=== PATIENT | male | born 1970 | race Caucasian/White ===

== ENCOUNTER → 2018-07-07 09:39 | Outpatient (CLI) | payer OTHER, SELFPAY ==
[2018-07-07 14:27] LABS: Erythrocyte Sedimentation Rate 11 mm/hr (0-15)
[2018-07-07 14:37] LABS: Absolute Lymphocyte Count 1.63 X10^3/ul (0.83-4.51); Absolute Neutrophil Count 4.8 X10^3/uL (2.0-7.7); Basophil# 0.02 X10^3/uL; Basophil% 0.3 % (0-1); Eosinophil# 0.06 X10^3/uL; Eosinophils% 0.9 % (0-5); Hematocrit 45.9 % (40-54); Hemoglobin 15.2 g/dl (13.0-16.5); Lymphocyte # 1.63 X10^3/ul (4.0); Lymphocyte % 23.2 % (19-41); Mean Corp Hgb Conc 33.1 g/gl (32-36); Mean Corpuscular Hgb 29.9 pg (27.0-32.0); Mean Corpuscular Volume 90.4 fL (80-94); Mean Platelet Vol. 10.2 fl (6.2-12.0); Monocyte# 0.52 X10^3/uL; Monocyte% 7.4 % (0-10); Neutrophil # 4.78 X10^3/uL (2.7-7.7); Neutrophil % 67.9 % (47-70); Platelet Count 257 K/mm3 (150-450); RBC Distribution Width CV 13.1 % (11.6-14.6); Red Blood Count 5.08 M/mm3 (4.6-6.2)
[2018-07-07 14:38] LABS: POSITIVE COUNT NO; POSITIVE DIFFERENTIAL NO; POSITIVE MORPHOLOGY NO
[2018-07-07 15:08] LABS: Anion Gap 10 (5-15); BUN 26 mg/dL (7-18); BUN/Creat Ratio 24.8 RATIO (10-20); CRP < 2.90 mg/L (0.0-3.0); Calcium,Total 9.3 mg/dL (8.5-10.1); Chloride 105 mmol/L (98-107); Creatinine, Serum 1.05 mg/dL (0.70-1.30); EST Glomerular Filtration Rate 81 mL/min (>60); Est Glom Filt Rate - Afr Amer 98 mL/min (>60); Glucose 112 mg/dL (74-106); Potassium 3.8 mmol/L (3.5-5.1); Sodium Level 141 mmol/L (136-145); Thyroid Stim Hormone (TSH) 1.41 uIU/mL (0.358-3.74)
[2018-07-12 08:37] LABS: AST(SGOT) 22 U/L (15-37); Alanine Aminotransfer ALT/SGPT 37 U/L (16-61); Albumin, Serum 4.3 g/dL (3.2-5.0); Alkaline Phosphatase 67 U/L (45-117); Bilirubin, Direct 0.12 mg/dL (0.00-0.30); Globulin 3.5 g/dL (2.2-4.2); Protein, Total 7.8 g/dL (6.4-8.2)
--- OUTSIDE RECORDS SUMMARY | 2018-09-01 04:31 | XMS RPT_ITS ---
:1970 Author Organization OHIP Care Team Providers Name Role Phone Bhavana Tabor Attending Unavailable Bhavana Tabor Primary Care Unavailable Bhavana Tabor Attending Unavailable Bhavana Tabor Referring Unavailable Bhavana Tabor Primary Care Unavailable Bhavana Tabor Attending Unavailable Bhavana Tabor Referring Unavailable Bhavana Tabor Primary Care Unavailable Bhavana Tabor Attending Unavailable Bhavana Tabor Referring Unavailable Bhavana Tbaor Primary Care Unavailable MYNOR MCKEON Attending Unavailable Zaid Gao Referring Unavailable BHAVANA TABOR Primary Care Unavailable PROBLEMS PROBLEMS No Problem Records FoundPROCEDURES PROCEDURES No Procedure Records FoundRESULTS RESULTS LIVER Observed: 07/14/2018 Status: F Source: YULI 8:43 AM [facility] REPOSITORY [facility] Imaging Services [address] [place] [address] Liver MR#: [id number] Acct: [id number] Name: JOSE LEDESMA Rep #: [id number] : 1970 M 48 From: Pierre Quiñones MD PCP: Bhavana Tabor MD Status: REG CLI Study: Liver Date of Exam: 07/14/18 Exam# [id number] Ordering Dr: Abdoul Tabor MD STUDY: ABDOMINAL ULTRASOUND - RIGHT UPPER QUADRANT REASON FOR VISIT: Male, [address] scan of the abdomen showed 2 small abnormalities in the liver. TECHNIQUE: Ultrasound evaluation of the right upper quadrant was performed with real-time and static jeter-scale imaging. TECHNICAL QUALITY: Adequate. COMPARISON: Comparison is made with prior CT scan and abdomen dated July 12, 2018. FINDINGS: Liver: The liver measures 13.5 cm. There is normal echogenicity of the liver. The bile ducts are within normal limits. There is hepatic color flow. The direction of portal flow is hepatopetal. There is a 7 mm x 6 mm x 10 mm slightly echogenic nodule in the inferior lateral aspect right lobe of the liver. This corresponds to the CT findings. This may represent a small hemangioma. There is also evidence of a 7 mm x 6 mm x 6 mm slightly echogenic nodule in the superior aspect of the right lobe. This has the appearance of an hemangioma as well. Gallbladder: Normal distended gallbladder. The gallbladder wall measures 2.4 mm. There is a negative sonographic Thomas's sign. There is no pericholecystic fluid. There are no gallstones. Common Bile Duct (C.B.D.): The common bile duct measures 3.7 mm. Pancreas: Normal size of the head, body and tail of the pancreas. There is normal echogenicity of the pancreas. There is no demonstrated pancreatic mass or cyst. Right Kidney: Normal size of the right kidney. The right kidney measures 9.9 cm x 4.8 cm x 5.4 cm. Normal renal cortex. The right cortex measures 1.6 cm. There is no demonstrated renal mass or cyst. There is no right hydronephrosis. US/Liver IMPRESSION: Sonographic findings suggestive of 2 small hemangiomas in the right lobe of liver corresponding to the CT findings. Electronically Signed: Pierre Quiñones MD at 14:29 EST Tel [phone], Service support , CC: Bhavana Tabor MD Rope Cleaner: Signed CHEST WITH CONTRAST Observed: 07/12/2018 Status: F Source: YULI 3:23 PM [facility] REPOSITORY [facility] Imaging Services [address] [place] [address] Chest WITH Contrast MR#: [id number] Acct: [id number] Name: JOSE LEDESMA Rep #: [id number] : 1970 M 48 From: Simone Souza MD PCP: Bhavana Tabor MD Status: REG CLI Study: Chest WITH Contrast Date of Exam: 07/12/18 Exam# [id number] Ordering Dr: Abdoul Tabor MD STUDY: CT CHEST WITH CONTRAST REASON FOR EXAM: Male, 48 years old. Brain metastases. RADIATION DOSAGE (If Supplied By Facility): CTDIvol = ( 12.59 ) mGy, DLP = ( 970.62 ) mGycm TECHNIQUE: Transaxial imaging was performed following intravenous administration of 100CC ml of Isovue 300 contrast material. Individualized dose optimization techniques were used for this CT. COMPARISON: None. FINDINGS: TRACHEA, THYROID, ESOPHAGUS: No tracheomalacia,stricture or wall thickening. Thyroid and esophagus are normal CARDIOVASCULAR SYSTEM: The thoracic aorta is normal with no focal aneurysm or dissection. There are no abnormal calcifications/metallic densities at the aortic root. The pulmonary trunk and the left and right pulmonary arteries and their lobar and segmental branches all fail to show any abnormal and persistent filling defects to indicate the presence of pulmonary embolism. The heart is normal in size with no demonstration of any right ventricular strain. No developmental vascular anomalies are seen. KELLI AND LYMPH NODES: No hilar masses and no mediastinal, hilar, axillary or supraclavicular adenopathy LUNGS, LOW-ATTENUATION: No traction bronchiectasis, honeycombing,emphysema, lung cysts or cavitations LUNGS, HIGH ATTENUATION: No nodules/masses, ground glass opacities/consolidations or increased interstitial markings LUNGS, MOSAIC/CRAZY PAVING: Not evident PLEURA AND CHEST WALL: No plural effusions, pneumothoraces,rib fractures or any osteolytic/osteoblastic changes . The soft tissue chest wall including the breasts are normal . CT/Chest WITH Contrast IMPRESSION: No primary or secondary metastatic lesions in the lungs. No acute findings. Electronically Signed: Simone Souza MD at 4:19 EST Tel , Service support , CC: Bhavana Tabor MD Rope Cleaner: Signed ABDOMEN/PELVIS WITH Observed: 07/12/2018 Status: F Source: [place] CONTRAST 3:23 PM [facility] RE[facility]ITORY [facility] Imaging Services [address] [place] [address] Abdomen/Pelvis WITH Contrast MR#: [id number] Acct: [id number] Name: JOSE LEDESMA Rep #: [id number] : 1970 M 48 From: Simone Souza MD PCP: Bhavana Tabor MD Status: REG CLI Study: Abdomen/Pelvis WITH Contrast Date of Exam: 07/12/18 Exam# [id number] Ordering Dr: Abdoul Tabor MD STUDY: CT ABDOMEN AND PELVIS WITH CONTRAST REASON FOR EXAM: Male, 48 years old. Brain metastasis RADIATION DOSAGE (If Supplied By Facility): CTDIvol = ( 12.59 ) mGy, DLP = ( 970.62 ) mGycm TECHNIQUE: Transaxial images were obtained from the dome of the diaphragm to the symphysis pubis without oral contrast. 100CC ml of Isovue 300 contrast was administered. Sagittal and coronal images were reconstructed. Individualized dose optimization techniques were used for this CT. COMPARISON: None. FINDINGS: The lung bases are clear. A 3.5 and 5.8 mm areas of low attenuation in the left and right lobes respectively. It is not clear whether these are metastatic foci are not. No dilated intrahepatic biliary radicles. The gallbladder is normal with no calcifications within it. There is no pericholecystic fluid collection or streakiness The spleen is normal. The pancreas is normal. Both adrenals are normal. The kidneys are normal with no masses, calculi or hydronephrosis The stomach is normal. There is no bowel distention, acute appendicitis or diverticulitis. No constricting lesions are seen in large bowel. The abdominal wall is intact with no hernias. There is no ascites or any free intraperitoneal air. No indication of epiploic appendagitis The vascular structures in the retroperitoneum are normal. There is no retrocrural, retroperitoneal or mesenteric adenopathy. The bones and joints are normal. The urinary bladder is normal.--The prostate is enlarged and indents on the bladder base. There is no inguinal or pelvic adenopathy. There is no inguinal hernia. . CT/Abdomen/Pelvis WITH Contrast IMPRESSION: A 3.5 and 5.8 mm areas of low attenuation within the left and right lobes of the liver respectively. It is not clear whether these are metastatic foci are not. No masses are seen in the entire abdomen or pelvis. No acute findings Electronically Signed: Simone Souza MD at 4:25 EST Tel , Service support , CC: Bhavana Tabor MD Rope Cleaner: Signed BRAIN W/WO CONTRAST Observed: 07/10/2018 Status: F Source: YULI 12:28 PM [facility] RE[facility]ORY [facility] Imaging Services [address] [place] [address] Brain W/WO Contrast MR#: [id number] Acct: [id number] Name: JOSE LEDESMA Rep #: [id number] : 1970 M 48 From: Jordy Alvarenga MD PCP: Bhavana Tabor MD Status: REG CLI Study: Brain W/WO Contrast Date of Exam: 07/10/18 Exam# [id number] Ordering Dr: Abdoul Tabor MD STUDY: MRI BRAIN WITH AND WITHOUT CONTRAST REASON FOR EXAM: Male, 48 years old. Right facial numbness and hypersensitive from jaw to scalp x2 weeks. TECHNIQUE: Standardized multiplanar fat and water weighted pulse sequences were obtained. 8 ml of Gadavist contrast material was administered intravenously for the contrast portion of the examination. COMPARISON: None. FINDINGS: 0.8 x 0.6 cm rim-enhancing mass in the right middle cerebellar peduncle. This is also visible on the T2 FLAIR sequence and is mildly hypointense on T1. A second 2 mm solid enhancing mass in the left middle frontal lobe gyrus (series 14, image 18). This second mass is not visible on the T2 FLAIR sequence. They are brain metastatic mass lesions until proven otherwise. Normal ventricles and cisterns. No other focal signal abnormalities throughout the brain parenchyma. Normal white matter tracts of the supratentorial brain. Normal bilateral basal ganglia. Normal thalami. There is no extra-axial fluid accumulation. Normal flow voids within the major intracranial circulation suggesting patency by spin echo criteria. Normal venous enhancement. There is no enhancing intra-axial or extra-axial abnormality. Normal sella turcica, pituitary gland, infundibular stalk, optic chiasm and hypothalamus. Normal tectal plate and pineal gland. Normal midbrain, simone and medulla. Normal cerebellum. Normal basal cisterns. Normal bilateral temporal bones. Normal bilateral internal auditory canals. No demonstrated orbital abnormality, within the constraints of a routine brain study. Normal visualized paranasal sinuses. Normal calvarium and skull base. Normal visualized soft tissue structures. Normal visualized upper cervical spine. MRI/Brain W/WO Contrast IMPRESSION: 0.8 x 0.6 cm rim-enhancing mass in the right middle cerebellar peduncle and a 2 mm solid enhancing mass in the left middle frontal lobe gyrus. They are worrisome for brain metastatic mass lesions until proven otherwise. Electronically Signed: Jordy Alvarenga MD at 14:20 EST , Service support , CC: Bhavana Tabor MD Rope Cleaner: Signed ERYTHROCYTE SED RATE Collected: 07/07/2018 Status: F Source: [place] 9:43 AM [facility] REPOS[facility]ORY TYPE CODE TESTS RESULT OUT OF RANGE REFERENCE UNITS LAB L102.0000 0-15 mm/hr Normal SED RATE 11 Performed By: #### L101.9900, L100.0100, L500.2500, L501.9520 #### [facility] [address] [place], [address] CBC W/DIFF, AUTOMATED Collected: 07/07/2018 Status: F Source: [place] 9:43 AM [facility] REPOS[facility]ORY TYPE CODE TESTS RESULT OUT OF RANGE REFERENCE UNITS LAB L100.1000 4.4-11.0 K/mm3 Normal WBC 7.0 LAB L100.1200 4.6-6.2 M/mm3 Normal RBC 5.08 LAB L100.1300 13.0-16.5 g/dl Normal HGB 15.2 LAB L100.1400 40-54 % Normal HCT 45.9 LAB L100.1500 80-94 fL Normal MCV 90.4 LAB L100.1600 27.0-32.0 pg Normal MCH 29.9 LAB L100.1700 32-36 g/gl Normal MCHC 33.1 LAB L100.1810 11.6-14.6 % Normal RDW CV 13.1 LAB L100.1820 35.1-43.9 fl Normal RDW SD 43.0 LAB L100.1900 150-450 K/mm3 Normal PLT 257 LAB L100.2000 6.2-12.0 fl Normal MPV 10.2 LAB L100.2100 47-70 % Normal NEUT% 67.9 LAB L100.2200 19-41 % Normal LY% 23.2 LAB L100.2300 0-10 % Normal MONO% 7.4 LAB L100.2400 0-5 % Normal EO% 0.9 LAB L100.2500 0-1 % Normal BASO% 0.3 LAB L100.2550 0.0-0.9 % Normal IM GRAN % 0.300 Result Comment: IG% - Immature Granulocytes (promyelocytes, myelocytes and metamyelocytes) > 1% indicates that a LEFT SHIFT is Present. LAB L100.2620 2.0-7.7 X10 3/uL Normal Absolute Neut 4.8 LAB L100.2720 0.83-4.51 X10 3/ul Normal Absolute Lymph 1.63 Performed By: #### L101.9900, L100.0100, L500.2500, L501.9520 #### [facility] [address] [place], [place], [address] BASIC METABOLIC Collected: 07/07/2018 Status: F Source: YULI PROFILE (BMP) 9:43 AM [facility] REPOSITORY Order Comment: PLEASE ADD LIVER TO BLOOD DRAWN 07/07/18 PER TYPE CODE TESTS RESULT OUT OF RANGE REFERENCE UNITS LAB L501.0100 74-106 mg/dL High GLU 112 Result Comment: Fasting Glucose result from 100 to 125 mg/dL suggests IMPAIRED HOMEOSTASIS per A.D.A. criteria. Please note revised GLUCOSE reference range effective 2017. LAB L501.1000 7-18 mg/dL High BUN 26 LAB L501.1100 0.70-1.30 mg/dL Normal CREAT,SERUM 1.05 Result Comment: The validity of the calculated GFR AND GFRAA in patients over 70 years has not been determined. Clinical correlation is essential. LAB L501.1110 >60 mL/min Normal EST GFR 81 Result Comment: Non- GFR Calc LAB L501.1115 >60 mL/min Normal EST GFR - AA 98 Result Comment: GFR Calc LAB L501.1300 10-20 RATIO High BUN/CRE 24.8 LAB L501.2200 8.5-10.1 mg/dL CA Normal 9.3 LAB L501.5300 136-145 mmol/L NA Normal 141 LAB L501.5600 3.5-5.1 mmol/L K Normal 3.8 LAB L501.5900 98-107 mmol/L CL Normal 105 LAB L501.6100 21.0-32.0 mmol/L Normal CO2 26.0 LAB L501.6200 5-15 Normal GAP 10 Performed By: #### L101.9900, L100.0100, L500.2500, L501.9520 #### [facility] [address] [place], [place], [id number] THYROID STIM HORMONE Collected: 07/07/2018 Status: F Source: [place] (TSH) 9:43 AM [facility] REPOS[facility]ORY Order Comment: PLEASE ADD LIVER TO BLOOD DRAWN 07/07/18 PER TYPE CODE TESTS RESULT OUT OF RANGE REFERENCE UNITS LAB L501.9520 0.358-3.74 uIU/mL Normal TSH 1.41 Performed By: #### L101.9900, L100.0100, L500.2500, L501.9520 #### [facility] [address] [place], [place], [id number] CRP Collected: 07/07/2018 Status: F Source: [place] 9:43 AM [facility] REPOS[facility]ORY Order Comment: PLEASE ADD LIVER TO BLOOD DRAWN 07/07/18 PER TYPE CODE TESTS RESULT OUT OF RANGE REFERENCE UNITS LAB L501.6710 0.0-3.0 mg/L Normal < 2.90 C-REACTIVE PROT Result Comment: C-Reactive Protein (CRP) provides useful information for the diagnosis, therapy and monitoring of inflammatory processes and associated diseases. For the evaluation of Relative Risk for Cardiovascular Disease, a High Sensitivity CRP (HSCRP) should be ordered. Performed By: #### L501.6710, L500.3400 #### [facility] [address] [facility] [place], [place], [id number] LIVER PROFILE Collected: 07/07/2018 Status: F Source: [place] 9:43 AM [facility] REPOS[facility] Order Comment: PLEASE ADD LIVER TO BLOOD DRAWN 07/07/18 PER TYPE CODE TESTS RESULT OUT OF RANGE REFERENCE UNITS LAB L501.1500 6.4-8.2 g/dL Normal T PROT 7.8 LAB L501.1800 3.2-5.0 g/dL Normal ALB 4.3 LAB L501.1950 2.2-4.2 g/dL Normal GLOB 3.5 LAB L501.4100 15-37 U/L Normal AST 22 LAB L501.4305 45-117 U/L Normal ALK P 67 LAB L501.4405 16-61 U/L Normal ALT 37 LAB L501.4600 0.20-1.00 mg/dL Normal T BILI 0.50 LAB L501.4700 0.00-0.30 mg/dL Normal D BILI 0.12 Performed By: #### L501.6710, L500.3400 #### [facility] [address] [place], [address] ALLERGIES ALLERGIES DATE TYPE / CODE NAME / CODE REACTION SEVERITY SOURCE [id number] NO KNOWN [place] [address]([facility]) Repository ENCOUNTERS ENCOUNTERS ADMIT/DISCHARGE ACCOUNT NUMBER ADMITTING ENCOUNTER LOCATION SOURCE CLASS 07/26/2018 [id number] Ambulatory [facility] MEDICAL Repository CENTERBuildi ng:NEUSAGHB 07/14/2018 [id number] [facility] ding:US Repository 07/12/2018 [id number] [facility] ding:CT Repository 07/10/2018 [id number] [facility] ding:MRI Repository 07/07/2018 [id number] [facility] ding:MFPLAB Repository PAYERS PAYERS ENCOUNTER GUARANTOR PAYER SUBSCRIBER SOURCE 07/26/2018 JOSE SARAVIA [facility] SCHWARTZDOB: Insurance:[facility] SCHWARTZDOB: [facility] [id number] Repository [facility], Number: [id number]: [id number] Date: () 07/14/2018 JOSE De La Cruz Primary JOSE Roldan [id number] Insurance:[facility] [place] SCHWARTZDOB: [facility] Number: [id number] [id number] Repository [address]Lza: [phone]) Date: [phone] () JOSHUA MARY PAK [address]RN: 07/14/2018 Secondary JOSE Roldan Insurance:[facility] PACKAGE SCHWARTZDOB: [facility] Number: [id number] [facility] [id number] Repository Date:2018-07-13 07/14/2018 Tertiary NOT GIVENUNK [place] Insurance:SELF PAY [facility] Number: Effective Repository Date:2018-07-13 07/12/2018 JOSE R Primary JOSE [id number] Insurance:DO SCHWARTZDOB: Community DEKALB RULEPolicy Number: [id number], [place] [id number] Repository [address]Pmk: ([phone]) Date: [phone] () [facility], [place] [address]WG: 07/12/2018 Secondary NOT GIVENUNK [place] Insurance:SELF PAY [facility] Number: Effective Repository Date:2018-07-11 07/10/2018 JOSE R Primary JOSE LEDESMA538 Insurance:DO SCHWARTZDOB: [facility] DAREN [facility] Number: [id number], [place] [id number] Repository [address]Wve: ([phone]) Date:[phone] () [facility], [place] [address]TO: 07/10/2018 Secondary JOSE R [place] Insurance:[facility] PACKAGE SCHWARTZDOB: [facility] Number: [id number] Hospital [id number] Repository Date:2018-07-07 07/10/2018 Tertiary NOT GIVENUNK [place] Insurance:SELF PAY [facility] Number: Effective Repository Date:2018-07-07 07/07/2018 Jose Ledesma538 Primary Jose Roldan DEPEÑALB Insurance:DO SchwartzDOB: [place], [place] [facility] Number: [id number] Hospital [address]Opt: [phone] [id number] Repository [id number] (HP) Date: [facility], [place] [address]TB: 07/07/2018 Secondary NOT GIVENUNK [place] Insurance:SELF PAY [facility] Number: Effective Repository Date:2018-07-07
== END ==
LOC: MFPLAB 09:42
PROVIDERS: Family Provider Family Medicine; PCP Family Medicine; Visit Provider Family Medicine
DX: R20.0 Anesthesia of skin (principal)
CPT/HCPCS: 36415; 80048; 80076; 84443; 85025; 85652; 86140

== ENCOUNTER → 2018-07-10 12:18 | Outpatient (CLI) | payer OTHER, SELFPAY ==
--- NOTE | 2018-07-10 12:27 | MRI_ITS ---
STUDY: MRI BRAIN WITH AND WITHOUT CONTRAST REASON FOR EXAM: Male, 48 years old. Right facial numbness and hypersensitive from jaw to scalp x2 weeks. TECHNIQUE: Standardized multiplanar fat and water weighted pulse sequences were obtained. 8 ml of Gadavist contrast material was administered intravenously for the contrast portion of the examination. COMPARISON: None. FINDINGS: 0.8 x 0.6 cm rim-enhancing mass in the right middle cerebellar peduncle. This is also visible on the T2 FLAIR sequence and is mildly hypointense on T1. A second 2 mm solid enhancing mass in the left middle frontal lobe gyrus (series 14, image 18). This second mass is not visible on the T2 FLAIR sequence. They are brain metastatic mass lesions until proven otherwise. Normal ventricles and cisterns. No other focal signal abnormalities throughout the brain parenchyma. Normal white matter tracts of the supratentorial brain. Normal bilateral basal ganglia. Normal thalami. There is no extra-axial fluid accumulation. Normal flow voids within the major intracranial circulation suggesting patency by spin echo criteria. Normal venous enhancement. There is no enhancing intra-axial or extra-axial abnormality. Normal sella turcica, pituitary gland, infundibular stalk, optic chiasm and hypothalamus. Normal tectal plate and pineal gland. Normal midbrain, simone and medulla. Normal cerebellum. Normal basal cisterns. Normal bilateral temporal bones. Normal bilateral internal auditory canals. No demonstrated orbital abnormality, within the constraints of a routine brain study. Normal visualized paranasal sinuses. Normal calvarium and skull base. Normal visualized soft tissue structures. Normal visualized upper cervical spine. MRI/Brain W/WO Contrast IMPRESSION: 0.8 x 0.6 cm rim-enhancing mass in the right middle cerebellar peduncle and a 2 mm solid enhancing mass in the left middle frontal lobe gyrus. They are worrisome for brain metastatic mass lesions until proven otherwise. Electronically Signed: Jordy Alvarenga MD at 14:20 EST , Service support ,
--- OUTSIDE RECORDS SUMMARY | 2018-09-02 18:41 | XMS RPT_ITS ---
:1970 Author Organization OHIP Care Team Providers Name Role Phone Bhavana Kim Attending Unavailable Bhavana Kim Primary Care Unavailable Bhavana Kim Attending Unavailable Bhavana Kim Referring Unavailable Bhavana Kim Primary Care Unavailable Bhavana Kim Attending Unavailable Bhavana Kim Referring Unavailable Bhavana Kim Primary Care Unavailable Bhavana Kim Attending Unavailable Bhavana Kim Referring Unavailable Bhavana Kim Primary Care Unavailable MYNOR MCKEON Attending Unavailable ZAID GAO Referring Unavailable MYNOR MCKEON Attending Unavailable Zaid Gao. Referring Unavailable BHAVANA KIM Primary Care Unavailable PROBLEMS PROBLEMS No Problem Records FoundPROCEDURES PROCEDURES No Procedure Records FoundRESULTS RESULTS LIVER Observed: 07/14/2018 Status: F Source: YULI 8:43 AM [facility] Imaging Services [address] [place] [address] Liver MR#: [id number] Acct: [id number] Name: JOSE TUCKER Rep #: [id number] : 1970 M 48 From: Pierre Quiñones MD PCP: Bhavana Kim MD Status: REG CLI Study: Liver Date of Exam: 07/14/18 Exam# [id number] Ordering Dr: Abdoul Kim MD STUDY: ABDOMINAL ULTRASOUND - RIGHT UPPER [...] Pierre Quiñones MD at 14:29 EST Tel [phone], Service support , CC: Bhavana Kim MD Edge Drummer: Signed CHEST WITH CONTRAST Observed: 07/12/2018 Status: F Source: YULI 3:23 PM [facility] Imaging Services [address] [place] [address] Chest WITH Contrast MR#: [id number] Acct: [id number] Name: JOSE TUCKER Rep #: [id number] : 1970 M 48 From: Simone Souza MD PCP: Bhavana Kim MD Status: REG CLI Study: Chest WITH Contrast Date of Exam: 07/12/18 Exam# [id number] Ordering Dr: Abdoul Kim MD STUDY: CT CHEST WITH CONTRAST REASON [...] Tel , Service support , CC: Bhavana Kim MD Edge Drummer: Signed ABDOMEN/PELVIS WITH Observed: 07/12/2018 Status: F Source: [place] CONTRAST 3:23 PM [facility] Imaging Services [address] [place] [address] Abdomen/Pelvis WITH Contrast MR#: [id number] Acct: [id number] Name: JOSE TUCKER Rep #: [id number] : 1970 M 48 From: Simone Souza MD PCP: Bhavana Kim MD Status: REG CLI Study: Abdomen/Pelvis WITH Contrast Date of Exam: 07/12/18 Exam# [id number] Ordering Dr: Abdoul Kim MD STUDY: CT ABDOMEN AND PELVIS WITH [...] Tel , Service support , CC: Bhavana Kim MD Edge Drummer: Signed BRAIN W/WO CONTRAST Observed: 07/10/2018 Status: F Source: YULI 12:28 PM [facility] Imaging Services [facility] [place] [address] Brain W/WO Contrast MR#: [id number] Acct: [id number] Name: JOSE TUCKER Rep #: [id number] : 1970 M 48 From: Jordy Alvarenga MD PCP: Bhavana Kim MD Status: REG CLI Study: Brain W/WO Contrast Date of Exam: 07/10/18 Exam# [id number] Ordering Dr: Abdoul Kim MD STUDY: MRI BRAIN WITH AND WITHOUT [...] EST , Service support , CC: Bhavana Kim MD Edge Drummer: Signed ERYTHROCYTE SED RATE Collected: 07/07/2018 Status: F Source: DIAMOND 9:43 AM [facility] TYPE CODE TESTS RESULT OUT OF RANGE REFERENCE UNITS LAB L102.0000 0-15 mm/hr Normal SED RATE 11 Performed By: #### L101.9900, L100.0100, L500.2500, L501.9520 #### [facility] [address] [place], [place], [id number] CBC W/DIFF, AUTOMATED Collected: 07/07/2018 Status: F Source: DI[place]OND 9:43 AM [facility] TYPE CODE TESTS RESULT OUT OF [...] By: #### L101.9900, L100.0100, L500.2500, L501.9520 #### [facility] [address] [place], [address] BASIC METABOLIC Collected: 07/07/2018 Status: F Source: YULI PROFILE (BMP) 9:43 AM [facility] Order Comment: PLEASE ADD LIVER TO [...] By: #### L101.9900, L100.0100, L500.2500, L501.9520 #### [facility] [address] [place], [address] THYROID STIM HORMONE Collected: 07/07/2018 Status: F Source: YULI (TSH) 9:43 AM [facility] Order Comment: PLEASE ADD LIVER TO BLOOD DRAWN 07/07/18 PER TYPE CODE TESTS RESULT OUT OF RANGE REFERENCE UNITS LAB L501.9520 0.358-3.74 uIU/mL Normal TSH 1.41 Performed By: #### L101.9900, L100.0100, L500.2500, L501.9520 #### [facility] [address] [place], [address] CRP Collected: 07/07/2018 Status: F Source: DIAMOND 9:43 AM [facility] Order Comment: PLEASE ADD LIVER TO [...] ordered. Performed By: #### L501.6710, L500.3400 #### [facility] [address] [place], [address] LIVER PROFILE Collected: 07/07/2018 Status: F Source: DIAMOND 9:43 AM [facility] Order Comment: PLEASE ADD LIVER TO [...] 0.12 Performed By: #### L501.6710, L500.3400 #### [facility] [address] [place], [address] ALLERGIES ALLERGIES DATE TYPE / CODE NAME / CODE REACTION SEVERITY SOURCE Drug NO KNOWN [facility] Class/73798 ALLERGIES Other [place] 1003(SNOMED Repository CT) [id number] NO KNOWN [place] [address]([facility]) Repository ENCOUNTERS ENCOUNTERS ADMIT/DISCHARGE ACCOUNT NUMBER ADMITTING ENCOUNTER LOCATION SOURCE CLASS 07/26/2018 [id number] Ambulatory [facility] Other [place] Repository 07/26/2018 [id number] Ambulatory [facility] MEDICAL Repository CENTERBuildi ng:NEUSAGHB 07/14/2018 [id number] [facility] ding:US Repository 07/12/2018 [id number] [facility] ding:CT Repository 07/10/2018 [id number] [facility] ding:MRI Repository 07/07/2018 [id number] [facility] ding:MFPLAB Repository PAYERS PAYERS ENCOUNTER GUARANTOR PAYER SUBSCRIBER SOURCE 07/26/2018 JOSE Easley SCHWARTZDOB: Insurance:[facility]: [id number], Number: [id number]: [id number] Date: () 07/14/2018 JOSE [place] [id number] Insurance:[facility]: [facility] Number: [id number] [id number] Repository [address]Wjk: 330) Date: [phone] () [place] PAK [address]BR: 07/14/2018 Secondary JOSE R Y[place] Insurance:[facility] PACKAGE SCHWARTZDOB: Community PLANPolicy Number: [id number] [facility] [id number] Repository Date:2018-07-13 07/14/2018 Tertiary NOT GIVENUNK [place] Insurance:SELF PAY [facility] Number: Effective Repository Date:2018-07-13 07/12/2018 JOSE R Primary JOSE R Yuli [id number] Insurance:DO SCHWARTZDOB: [facility] DEKALB RULEPolicy Number: [id number], [place] [id number] Repository [address]Nsz: (330) Date: [phone] () [facility], [place] [address]YN: 07/12/2018 Secondary NOT GIVENUNK [place] Insurance:SELF PAY [facility] Number: Effective Repository Date:2018-07-11 07/10/2018 JOSE R Primary JOSE R Y[place] [id number] Insurance:DO SCHWARTZDOB: [facility] RULEPoly Number: [id number], [place] [id number] Repository [address]Lym: ([phone]) Date: [phone] () [facility], [place] [address]LC: 07/10/2018 Secondary JOSE R Y[place] Insurance:[facility] PACKAGE SCHWARTZDOB: [facility] [id number] [facility] [id number] Repository Date:2018-07-07 07/10/2018 Tertiary NOT GIVENUNK [place] Insurance:SELF PAY [facility] Number: Effective Repository Date:2018-07-07 07/07/2018 Jose [id number] Primary Jose [place] DEPEÑALB Insurance:DO SchwartzDOB: [place] [facility] Number: [id number] Hospital [address]Abx: (462) [id number] Repository [phone] (HP) Date: [facility], [place] [address]QS: 07/07/2018 Secondary NOT GIVENUNK [place] Insurance:SELF PAY [facility]: Effective Repository Date:2018-07-07
== END ==
PROVIDERS: Family Provider Family Medicine; PCP Family Medicine; Referring Provider Family Medicine; Visit Provider Family Medicine
DX: R20.0 Anesthesia of skin (principal)
CPT/HCPCS: 70553; A9585

== ENCOUNTER → 2018-07-12 15:19 | Outpatient (CLI) | payer SELFPAY, OTHER ==
--- NOTE | 2018-07-12 15:22 | CT_ITS ---
STUDY: CT ABDOMEN AND PELVIS WITH CONTRAST REASON FOR EXAM: Male, 48 years old. Brain metastasis RADIATION DOSAGE (If Supplied By Facility): CTDIvol = ( 12.59 ) mGy, DLP = ( 970.62 ) mGycm TECHNIQUE: Transaxial images were obtained from the dome of the diaphragm to the symphysis pubis without oral contrast. 100CC ml of Isovue 300 contrast was administered. Sagittal and coronal images were reconstructed. Individualized dose optimization techniques were used for this CT. COMPARISON: None. FINDINGS: The lung bases are clear. A 3.5 and 5.8 mm areas of low attenuation in the left and right lobes respectively. It is not clear whether these are metastatic foci are not. No dilated intrahepatic biliary radicles. The gallbladder is normal with no calcifications within it. There is no pericholecystic fluid collection or streakiness The spleen is normal. The pancreas is normal. Both adrenals are normal. The kidneys are normal with no masses, calculi or hydronephrosis The stomach is normal. There is no bowel distention, acute appendicitis or diverticulitis. No constricting lesions are seen in large bowel. The abdominal wall is intact with no hernias. There is no ascites or any free intraperitoneal air. No indication of epiploic appendagitis The vascular structures in the retroperitoneum are normal. There is no retrocrural, retroperitoneal or mesenteric adenopathy. The bones and joints are normal. The urinary bladder is normal.--The prostate is enlarged and indents on the bladder base. There is no inguinal or pelvic adenopathy. There is no inguinal hernia. . CT/Abdomen/Pelvis WITH Contrast IMPRESSION: A 3.5 and 5.8 mm areas of low attenuation within the left and right lobes of the liver respectively. It is not clear whether these are metastatic foci are not. No masses are seen in the entire abdomen or pelvis. No acute findings Electronically Signed: Simone Souza MD at 4:25 EST Tel , Service support ,
--- NOTE | 2018-07-12 15:22 | CT_ITS ---
STUDY: CT CHEST WITH CONTRAST REASON FOR EXAM: Male, 48 years old. Brain metastases. RADIATION DOSAGE (If Supplied By Facility): CTDIvol = ( 12.59 ) mGy, DLP = ( 970.62 ) mGycm TECHNIQUE: Transaxial imaging was performed following intravenous administration of 100CC ml of Isovue 300 contrast material. Individualized dose optimization techniques were used for this CT. COMPARISON: None. FINDINGS: TRACHEA, THYROID, ESOPHAGUS: No tracheomalacia,stricture or wall thickening. Thyroid and esophagus are normal CARDIOVASCULAR SYSTEM: The thoracic aorta is normal with no focal aneurysm or dissection. There are no abnormal calcifications/metallic densities at the aortic root. The pulmonary trunk and the left and right pulmonary arteries and their lobar and segmental branches all fail to show any abnormal and persistent filling defects to indicate the presence of pulmonary embolism. The heart is normal in size with no demonstration of any right ventricular strain. No developmental vascular anomalies are seen. KELLI AND LYMPH NODES: No hilar masses and no mediastinal, hilar, axillary or supraclavicular adenopathy LUNGS, LOW-ATTENUATION: No traction bronchiectasis, honeycombing,emphysema, lung cysts or cavitations LUNGS, HIGH ATTENUATION: No nodules/masses, ground glass opacities/consolidations or increased interstitial markings LUNGS, MOSAIC/CRAZY PAVING: Not evident PLEURA AND CHEST WALL: No plural effusions, pneumothoraces,rib fractures or any osteolytic/osteoblastic changes . The soft tissue chest wall including the breasts are normal . CT/Chest WITH Contrast IMPRESSION: No primary or secondary metastatic lesions in the lungs. No acute findings. Electronically Signed: Simone Souza MD at 4:19 EST Tel , Service support ,
== END ==
PROVIDERS: Family Provider Family Medicine; PCP Family Medicine; Referring Provider Family Medicine; Visit Provider Family Medicine
DX: G93.9 Disorder of brain, unspecified (principal)
CPT/HCPCS: 71260; 74177; Q9967

== ENCOUNTER → 2018-07-14 08:39 | Outpatient (CLI) | payer OTHER, SELFPAY ==
--- NOTE | 2018-07-14 08:43 | US_ITS ---
STUDY: ABDOMINAL ULTRASOUND - RIGHT UPPER QUADRANT REASON FOR VISIT: Male, [address] scan of the abdomen showed 2 small abnormalities in the liver. TECHNIQUE: Ultrasound evaluation of the right upper quadrant was performed with real-time and static jeter-scale imaging. TECHNICAL QUALITY: Adequate. COMPARISON: Comparison is made with prior CT scan and abdomen dated July 12, 2018. FINDINGS: Liver: The liver measures 13.5 cm. There is normal echogenicity of the liver. The bile ducts are within normal limits. There is hepatic color flow. The direction of portal flow is hepatopetal. There is a 7 mm x 6 mm x 10 mm slightly echogenic nodule in the inferior lateral aspect right lobe of the liver. This corresponds to the CT findings. This may represent a small hemangioma. There is also evidence of a 7 mm x 6 mm x 6 mm slightly echogenic nodule in the superior aspect of the right lobe. This has the appearance of an hemangioma as well. Gallbladder: Normal distended gallbladder. The gallbladder wall measures 2.4 mm. There is a negative sonographic Thomas's sign. There is no pericholecystic fluid. There are no gallstones. Common Bile Duct (C.B.D.): The common bile duct measures 3.7 mm. Pancreas: Normal size of the head, body and tail of the pancreas. There is normal echogenicity of the pancreas. There is no demonstrated pancreatic mass or cyst. Right Kidney: Normal size of the right kidney. The right kidney measures 9.9 cm x 4.8 cm x 5.4 cm. Normal renal cortex. The right cortex measures 1.6 cm. There is no demonstrated renal mass or cyst. There is no right hydronephrosis. US/Liver IMPRESSION: Sonographic findings suggestive of 2 small hemangiomas in the right lobe of liver corresponding to the CT findings. Electronically Signed: Pierre Quiñones MD at 14:29 EST Tel [phone], Service support ,
== END ==
PROVIDERS: Family Provider Family Medicine; PCP Family Medicine; Referring Provider Family Medicine; Visit Provider Family Medicine
DX: K76.9 Liver disease, unspecified (principal)
CPT/HCPCS: 76705

== ENCOUNTER → 2020-04-18 08:46 | Outpatient (CLI) | payer OTHER, SELFPAY ==
[2020-04-18 10:12] LABS: Hematocrit 43.9 % (40-54); Hemoglobin 14.7 g/dL (13.0-16.5); Mean Corp Hgb Conc 33.5 g/dL (32-36); Mean Corpuscular Hgb 29.7 pg (27.0-32.0); Mean Corpuscular Volume 88.7 fL (80-94); Mean Platelet Vol. 10.1 fl (6.2-12.0); Platelet Count 226 K/mm3 (150-450); RBC Distribution Width CV 13.3 % (11.6-14.6); RBC Distribution Width SD 43.1 fl (35.1-43.9); Red Blood Count 4.95 M/mm3 (4.6-6.2); White Blood Count 8.1 K/mm3 (4.4-11.0)
[2020-04-18 10:49] LABS: ALB/GLOB Ratio 1.2 RATIO (0.9-2.4); AST(SGOT) 25 U/L (15-37); Alanine Aminotransfer ALT/SGPT 34 U/L (16-61); Albumin, Serum 3.8 g/dL (3.2-5.0); Alkaline Phosphatase 79 U/L (45-117); Anion Gap 6 (5-15); BUN 23 mg/dL (7-18); BUN/Creat Ratio 21.7 RATIO (10-20); Calcium,Total 8.9 mg/dL (8.5-10.1); Chloride 106 mmol/L (98-107); Cholesterol 186 mg/dL (200); Creatinine, Serum 1.06 mg/dL (0.70-1.30); EST Glomerular Filtration Rate 79 mL/min (>60); Est Glom Filt Rate - Afr Amer 96 mL/min (>60); Globulin 3.1 g/dL (2.2-4.2); Glucose 111 mg/dL (74-106); High Density Lipoprotein 55 mg/dL; Protein, Total 6.9 g/dL (6.4-8.2); Sodium Level 138 mmol/L (136-145); Thyroid Stim Hormone (TSH) 1.11 uIU/mL (0.358-3.74); Triglycerides 43 mg/dL; Very Low Density Lipoprotein 9 mg/dL (5-40)
== END ==
PROVIDERS: PCP Family Medicine; Referring Provider Family Medicine; Visit Provider Family Medicine
DX: R07.9 Chest pain, unspecified (principal)
CPT/HCPCS: 36415; 80053; 80061; 84443; 84484; 85027

== ENCOUNTER → 2021-05-21 16:44 | Outpatient (CLI) | payer OTHER, SELFPAY ==
--- NOTE | 2021-05-21 16:46 | RAD_ITS ---
STUDY: X-RAY CHEST REASON FOR EXAM: Male, 51 years old. Cough. Allergy symptoms for 1 month. TECHNIQUE: PA and lateral views of the chest. COMPARISON: CT of the chest, 07/12/2018. FINDINGS: The lungs are clear and expanded. There is no demonstrated pleural abnormality. Normal size heart. Normal mediastinum and aditya. Normal visualized pulmonary arteries. Normal visualized aortic arch and descending thoracic aorta. A mild degenerative changes of the thoracic spine. Normal visualized ribs, clavicles, and shoulders. There is no demonstrated abnormality of the visualized soft tissue structures of the upper abdomen. RAD/Chest PA and Lateral IMPRESSION: Degenerative changes, as described above. No demonstrated acute cardiopulmonary process. Electronically Signed: Oneal Brizuela DO at 16:48 EDT Tel [phone], Service support ,
[2021-05-21 17:54] LABS: Absolute Lymphocyte Count 4.24 X10^3/uL (0.83-4.51); Absolute Neutrophil Count 2.4 X10^3/uL (2.0-7.7); Basophil# 0.04 X10^3/uL; Basophil% 0.5 % (0-1); Eosinophils% 2.6 % (0-5); Hematocrit 44.2 % (40-54); Hemoglobin 15.1 g/dL (13.0-16.5); Lymphocyte # 4.24 X10^3/ul (0.83-4.51); Lymphocyte % 55.3 % (19-41); Mean Corp Hgb Conc 34.2 g/dL (32-36); Mean Corpuscular Hgb 29.3 pg (27.0-32.0); Mean Corpuscular Volume 85.7 fL (80-94); Mean Platelet Vol. 9.6 fl (6.2-12.0); Monocyte# 0.77 X10^3/uL; NRBC Flagged by Analyzer 0 % (0-5); Neutrophil # 2.39 X10^3/uL (2.7-7.7); Neutrophil % 31.2 % (47-70); Platelet Count 227 K/mm3 (150-450); RBC Distribution Width CV 13.2 % (11.6-14.6); RBC Distribution Width SD 40.8 fl (35.1-43.9); Red Blood Count 5.16 M/mm3 (4.6-6.2); White Blood Count 7.7 K/mm3 (4.4-11.0)
[2021-05-21 18:01] LABS: Erythrocyte Sedimentation Rate 11 mm/hr (0-20)
[2021-05-21 18:50] LABS: AST(SGOT) 35 U/L (15-37); Alanine Aminotransfer ALT/SGPT 43 U/L (16-61); Alkaline Phosphatase 82 U/L (45-117); Anion Gap 7 (5-15); BUN 18 mg/dL (7-18); BUN/Creat Ratio 16.4 RATIO (10-20); Calcium,Total 9.2 mg/dL (8.5-10.1); Chloride 107 mmol/L (98-107); EST Glomerular Filtration Rate 76 mL/min (>60); Est Glom Filt Rate - Afr Amer 91 mL/min (>60); Glucose 85 mg/dL (74-106); Potassium 3.6 mmol/L (3.5-5.1); Sodium Level 140 mmol/L (136-145)
[2021-05-26 15:08] LABS: Alternaria tenuis <0.10 kU/L (Class 0); Ash, White <0.10 kU/L (Class 0); Aspergillus fumigatus <0.10 kU/L (Class 0); Bermuda Grass <0.10 kU/L (Class 0); Birch <0.10 kU/L (Class 0); Black Walnut <0.10 kU/L (Class 0); Cat Hair / Dander,Stand <0.10 kU/L (Class 0); Cedar, Mountain <0.10 kU/L (Class 0); Cladosporium herbarum <0.10 kU/L (Class 0); Cockroach, American <0.10 kU/L (Class 0); Cottonwood <0.10 kU/L (Class 0); D farinae Mite 0.25 kU/L (Class 0/I); D pteronyssinus 0.22 kU/L (Class 0/I); Dog Epithelia <0.10 kU/L (Class 0); Elm, American White <0.10 kU/L (Class 0); Immunoglobulin E 5 IU/mL (6-495); Maple/Box Elder <0.10 kU/L (Class 0); Mulberry, White <0.10 kU/L (Class 0); Oak, White <0.10 kU/L (Class 0); Pecan <0.10 kU/L (Class 0); Penicillium Notatum <0.10 kU/L (Class 0); Pigweed, Rough <0.10 kU/L (Class 0); Ragweed, Short/Common <0.10 kU/L (Class 0); Russian Thistle <0.10 kU/L (Class 0); Sheep Sorrel <0.10 kU/L (Class 0); Sycamore, American <0.10 kU/L (Class 0); Timothy Grass <0.10 kU/L (Class 0)
[2021-05-26 16:56] LABS: Mouse Urine <0.10 kU/L (Class 0)
== END ==
PROVIDERS: PCP Family Medicine; Referring Provider Family Medicine; Visit Provider Family Medicine
DX: R05.9 Cough, unspecified (principal)
CPT/HCPCS: 36415; 71046; 80053; 82785; 85025; 85652; 86003

== ENCOUNTER → 2021-08-05 15:21 | Outpatient (CLI) | payer OTHER, SELFPAY ==
[2021-08-05 18:22] LABS: Vitamin B12 369 pg/mL (211-911); Vitamin D,25 Hydroxy 30.2 ng/mL
[2021-08-05 18:29] LABS: AST(SGOT) 26 U/L (15-37); Alanine Aminotransfer ALT/SGPT 40 U/L (16-61); Albumin, Serum 4.1 g/dL (3.2-5.0); Alkaline Phosphatase 70 U/L (45-117); Anion Gap 8 (5-15); BUN 21 mg/dL (7-18); BUN/Creat Ratio 21.1 RATIO (10-20); Calcium,Total 9.3 mg/dL (8.5-10.1); Chloride 105 mmol/L (98-107); Cholesterol 240 mg/dL (200); Creatinine, Serum 0.99 mg/dL (0.70-1.30); EST Glomerular Filtration Rate 85 mL/min (>60); Est Glom Filt Rate - Afr Amer 103 mL/min (>60); Globulin 3.8 g/dL (2.2-4.2); Glucose 82 mg/dL (74-106); High Density Lipoprotein 58 mg/dL; Protein, Total 7.9 g/dL (6.4-8.2); Sodium Level 139 mmol/L (136-145); Thyroid Stim Hormone (TSH) 1.41 uIU/mL (0.358-3.74); Triglycerides 114 mg/dL; Very Low Density Lipoprotein 23 mg/dL (5-40)
== END ==
PROVIDERS: PCP Family Medicine; Visit Provider Family Medicine
DX: R53.83 Other fatigue (principal); R79.89 Other specified abnormal findings of blood chemistry; Z13.1 Encounter for screening for diabetes mellitus; Z13.220 Encounter for screening for lipoid disorders
CPT/HCPCS: 36415; 80048; 80061; 80076; 82306; 82607; 84403; 84443

== ENCOUNTER → 2022-07-08 | Outpatient (CLI) | payer OTHER, SELFPAY ==
--- NOTE | 2022-07-08 06:33 | CT_ITS ---
STUDY: CT PELVIS WITH CONTRAST REASON FOR EXAM: Male, 52 years old. Recurrent perianal abscess. Patient has a history of multiple sclerosis. RADIATION DOSAGE (If Supplied By Facility): CTDIvol = ( 26.78 ) mGy, DLP = ( 1923.29 ) mGycm TECHNIQUE: Transaxial imaging of the pelvis was performed without oral contrast. IV 100mL Isovue-300 was administered intravenously. Individualized dose optimization techniques were used for this CT. COMPARISON: None. FINDINGS: Normal urinary bladder. There is diffuse heterogeneous enlargement of the prostate as well as the seminal vesicles. This causes indentation at the bladder base. Normal visualized small intestine. There are multiple colonic diverticula of the sigmoid colon consistent with chronic diverticulosis. There is no pelvic fluid. There is no pelvic lymphadenopathy or mass lesion. Normal visualized pelvic arteries. Normal abdominal wall. Normal osseous structures. CT/Pelvis WITH IV Contrast IMPRESSION: Diffuse heterogeneous enlargement of the prostate as well as the seminal vesicles with indentation at the bladder base. No evidence of the perianal abscess. Electronically Signed: Pierre Quiñones MD at 12:39 EST ,
== END | disposition home or self-care (01) ==
PROVIDERS: PCP Family Medicine; Referring Provider Family Medicine; Visit Provider Family Medicine
DX: K61.0 Anal abscess (principal)
CPT/HCPCS: 72193; Q9967

== ENCOUNTER → 2022-07-12 | Outpatient (CLI) | payer OTHER, SELFPAY ==
[2022-07-12 17:47] LABS: Absolute Lymphocyte Count 3.69 X10^3/uL (0.83-4.51); Absolute Neutrophil Count 5.4 X10^3/uL (2.0-7.7); Basophil# 0.06 X10^3/uL; Basophil% 0.6 % (0-1); Eosinophil# 0.09 X10^3/uL; Eosinophils% 0.9 % (0-5); Hematocrit 44.6 % (40-54); Lymphocyte # 3.69 X10^3/ul (0.83-4.51); Lymphocyte % 36.9 % (19-41); Mean Corp Hgb Conc 33.6 g/dL (32-36); Mean Corpuscular Hgb 29.1 pg (27.0-32.0); Mean Corpuscular Volume 86.6 fL (80-94); Mean Platelet Vol. 9.9 fl (6.2-12.0); Monocyte# 0.71 X10^3/uL; Monocyte% 7.1 % (0-10); NRBC Flagged by Analyzer 0.3 % (0-5); Neutrophil % 54.1 % (47-70); Platelet Count 303 K/mm3 (150-450); RBC Distribution Width CV 13.7 % (11.6-14.6); RBC Distribution Width SD 43.4 fl (35.1-43.9); Red Blood Count 5.15 M/mm3 (4.6-6.2)
[2022-07-12 18:03] LABS: Vitamin B12 400 pg/mL (211-911); Vitamin D,25 Hydroxy 27.9 ng/mL
[2022-07-12 18:37] LABS: PSA,Total - Annual Screen 0.61 ng/mL (0.00-4.00)
== END | disposition home or self-care (01) ==
LOC: MFPLAB 14:26
PROVIDERS: PCP Family Medicine; Visit Provider Family Medicine
DX: N40.0 Benign prostatic hyperplasia without lower urinary tract symptoms (principal); E53.8 Deficiency of other specified B group vitamins; R79.89 Other specified abnormal findings of blood chemistry
CPT/HCPCS: 36415; 82306; 82607; 84153; 85025; G0103

== ENCOUNTER → 2022-07-22 | Outpatient (CLI) | payer OTHER, SELFPAY | END | disposition home or self-care (01) | LOC: LABSPEC 09:35 | PROVIDERS: PCP Family Medicine; Visit Provider Physician Assistant | DX: N49.2 Inflammatory disorders of scrotum (principal) | CPT/HCPCS: 87070; 87075; 87077; 87186; 87205 ==

== ENCOUNTER → 2022-08-05 | Outpatient (CLI) | payer OTHER, SELFPAY ==
[2022-08-05 15:36] LABS: Absolute Lymphocyte Count 3.34 X10^3/uL (0.83-4.51); Absolute Neutrophil Count 4.5 X10^3/uL (2.0-7.7); Basophil# 0.04 X10^3/uL; Basophil% 0.5 % (0-1); Eosinophil# 0.06 X10^3/uL; Eosinophils% 0.7 % (0-5); Hematocrit 46.4 % (40-54); Hemoglobin 15.7 g/dL (13.0-16.5); Lymphocyte # 3.34 X10^3/ul (0.83-4.51); Mean Corp Hgb Conc 33.8 g/dL (32-36); Mean Corpuscular Volume 88.5 fL (80-94); Mean Platelet Vol. 10.1 fl (6.2-12.0); Monocyte# 0.37 X10^3/uL; Monocyte% 4.4 % (0-10); NRBC Flagged by Analyzer 0.2 % (0-5); Neutrophil % 53.9 % (47-70); Platelet Count 274 K/mm3 (150-450); RBC Distribution Width CV 13.7 % (11.6-14.6); RBC Distribution Width SD 44.9 fl (35.1-43.9); Red Blood Count 5.24 M/mm3 (4.6-6.2); White Blood Count 8.4 K/mm3 (4.4-11.0)
[2022-08-05 16:13] LABS: ALB/GLOB Ratio 1.4 RATIO (0.9-2.4); AST(SGOT) 35 U/L (15-37); Alanine Aminotransfer ALT/SGPT 52 U/L (16-61); Albumin, Serum 4.3 g/dL (3.2-5.0); Alkaline Phosphatase 69 U/L (45-117); Anion Gap 5 (5-15); BUN 20 mg/dL (7-18); BUN/Creat Ratio 20.1 RATIO (10-20); Calcium,Total 9.5 mg/dL (8.5-10.1); Chloride 106 mmol/L (98-107); EST Glomerular Filtration Rate 84 mL/min (>60); Est Glom Filt Rate - Afr Amer 102 mL/min (>60); Globulin 3.1 g/dL (2.2-4.2); Glucose 99 mg/dL (74-106); Potassium 4.4 mmol/L (3.5-5.1); Protein, Total 7.4 g/dL (6.4-8.2); Sodium Level 137 mmol/L (136-145); Thyroid Stim Hormone (TSH) 1.15 uIU/mL (0.358-3.74)
[2022-08-05 16:19] LABS: Erythrocyte Sedimentation Rate 7 mm/hr (0-20)
[2022-08-05 16:31] LABS: Vitamin D,25 Hydroxy 30.4 ng/mL
[2022-08-10 11:07] LABS: Endomysial Antibody IgA Negative (Negative)
[2022-08-10 16:34] LABS: Immunoglobulin A 228 mg/dL (90-386); t-Transglutaminase IgA <2 U/mL (0-3)
== END | disposition home or self-care (01) ==
LOC: MFPLAB 11:47
PROVIDERS: PCP Family Medicine; Referring Provider Family Medicine; Visit Provider Family Medicine
DX: R19.7 Diarrhea, unspecified (principal)
CPT/HCPCS: 36415; 80053; 82306; 82784; 83516; 84443; 85025; 85652; 86255

== ENCOUNTER → 2022-08-06 | Outpatient (CLI) | payer OTHER, SELFPAY ==
[2022-08-13 18:17] LABS: Pancreatic Elastase, Fecal 199 (>200)
== END | disposition home or self-care (01) ==
LOC: LABSPEC 14:56
PROVIDERS: PCP Family Medicine; Referring Provider Family Medicine; Visit Provider Family Medicine
DX: R19.7 Diarrhea, unspecified (principal)
CPT/HCPCS: 82653; 87177; 87209; 87506

== ENCOUNTER 2022-09-29 12:53 | Emergency (ER) | payer OTHER, SELFPAY ==
[2022-09-29 12:54] VITALS: BP 131/83; PULSE 92; RESP 18; TEMP 36.6; O2SAT 99; BMI 24.8
[2022-09-29 13:33] LABS: Bacteria 0 SEEN /hpf (None Seen); Mucous, Urine 0 SEEN /hpf (<or=2+); Squamous Epithelial Cells - UA 0 SEEN /hpf (0-5); White Blood Cells 0 SEEN /hpf (0-5)
[2022-09-29 13:36] LABS: Absolute Lymphocyte Count 3.05 X10^3/uL (0.83-4.51); Absolute Neutrophil Count 4.5 X10^3/uL (2.0-7.7); Basophil# 0.04 X10^3/uL; Basophil% 0.5 % (0-1); Eosinophil# 0.08 X10^3/uL; Hematocrit 45.4 % (40-54); Lymphocyte # 3.05 X10^3/ul (0.83-4.51); Lymphocyte % 37.2 % (19-41); Mean Corpuscular Hgb 29.6 pg (27.0-32.0); Mean Corpuscular Volume 89.5 fL (80-94); Mean Platelet Vol. 9.5 fl (6.2-12.0); Monocyte# 0.53 X10^3/uL; Monocyte% 6.5 % (0-10); NRBC Flagged by Analyzer 0 % (0-5); Neutrophil # 4.48 X10^3/uL (2.7-7.7); Neutrophil % 54.6 % (47-70); Platelet Count 236 K/mm3 (150-450); RBC Distribution Width CV 13.4 % (11.6-14.6); RBC Distribution Width SD 43.7 fl (35.1-43.9); Red Blood Count 5.07 M/mm3 (4.6-6.2); White Blood Count 8.2 K/mm3 (4.4-11.0)
[2022-09-29 13:37] LABS: Color, Urine Yellow (Yellow); Glucose, Dipstick Normal (Normal); Ketone-Dipstick 5 mg/dl (Negative); Leukocyte Esterase-Dipstick Negative /ul (Negative); Nitrite-Dipstick Negative (Negative); Occult Blood-Urine 150 /ul (Negative); Protein-Dipstick 15 mg/dl (Negative); Urine Bilirubin Dipstick Negative (Negative); Urine Clarity Clear (Clear); Urine Urobilinogen Normal (Normal)
--- NOTE | 2022-09-29 13:40 | CT_ITS ---
STUDY: CT ABDOMEN AND PELVIS WITHOUT CONTRAST REASON FOR EXAM: Male, 52 years old. Left flank pain. Nausea. RADIATION DOSAGE (If Supplied By Facility): CTDIvol = ( 6.17 ) mGy, DLP = ( 298.81 ) mGycm TECHNIQUE: Transaxial images were obtained from the dome of the diaphragm to the symphysis pubis without oral contrast, and without intravenous contrast. Sagittal and coronal images were reconstructed. Individualized dose optimization techniques were used for this CT. COMPARISON: Comparison is made with prior study dated 07/12/2018. FINDINGS: The visualized lung bases are unremarkable. The visualized portions of the heart are within normal limits. Normal liver. Normal gallbladder and extrahepatic biliary system. Normal spleen. Normal pancreas. Normal bilateral adrenal glands. Punctate calculus is seen in the lower pole calyx of the right kidney. 2 mm calculus is seen in the upper pole calyx of the left kidney. Normal visualized stomach. Normal small intestine. Normal colon. The appendix is visualized and appears normal. Normal abdominal aorta. Normal inferior vena cava. Normal retroperitoneum. There is a punctate calculus at the base of the bladder on the left side suggestive of recent ureteral calculus that has passed. There is a small umbilical hernia containing fat. Normal osseous structures. CT/Abdomen/Pelvis without Cont IMPRESSION: Punctate calculus seen at the base of the bladder on the left size just of a recently passed ureteral calculus. Tiny nonobstructive bilateral intrarenal calculi. Electronically Signed: Pierre Quiñones MD at 14:53 EST ,
--- NOTE | 2022-09-29 13:41 | EDS_ITS ---
HPI HPI - GI History of Present Illness Chief Complaint: Flank Pain Narrative Narrative: 52-year-old male presenting with left flank pain. He states started about lunchtime about noon. He states he initially felt sweaty and nauseous. The pain increased and then resolved. He currently is pain-free. No history of kidney stones. No urinary urgency, frequency. No hematuria. PFSH PFSH Medical History Multiple sclerosis Scrotal abscess Home Medications natalizumab 300 mg/15 mL intravenous solution (Tysabri) 300 mg .Route 07/22/22 [History Last Taken Unknown] Allergy/AdvReac Type Severity Reaction Status Date / Time No Known Allergies Allergy Verified 09/29/22 12:54 Surgical History History of colonoscopy Social History Smoking Status: Never smoker alcohol intake: never substance use type: does not use ROS ROS ED Constitutional Constitutional ED: Denies chills, fever(s) or sweats Eyes Eyes: Denies blurry vision or change in vision ENT ENT ED: Denies ear pain or sore throat Cardiovascular Cardiovascular: Denies chest pain, palpitations or racing heartbeat Respiratory/Chest Respiratory/Chest: Denies cough, dyspnea or sputum Gastrointestinal Gastrointestinal: Reports abdominal pain; Denies constipation, diarrhea, nausea or vomiting Genitourinary Genitourinary ED: Denies dysuria, hematuria or urinary frequency Musculoskeletal Musculoskeletal: Reports back pain; Denies arthralgias, myalgias or neck pain Integumentary Denies abscess, Abrasions or rash Neurologic Neurologic: Denies headache(s), paresthesias or weakness Psychiatric Psychiatric: Denies anxiety, depression, suicidal ideation or suicidal thoughts Endocrine Endocrinology: Denies polydipsia or polyuria EXAM Physical Exam Const Vital Signs: 09/29/22 12:54 Temperature 97.8 F Temperature Source Temporal Pulse Rate 92 Respiratory Rate 18 Blood Pressure 131/83 H Blood Pressure Mean 99 Pulse Ox 99 Oxygen Delivery Method Room Air Positive well nourished General Appearance ED: NAD; Negative for pallor HEENT Reports TM's clear and moist mucous membranes normocephalic and atraumatic Tympanic Membrane ED: Yes TM's clear Eyes PERRL and EOMs intact bilaterally Neck no lymphadenopathy Resp normal respiratory effort and clear to auscultation bilaterally Auscultation: Negative for rales, rhonchi or wheezes Cardio regular rate and regular rhythm GI non-tender Back/Spine no CVA tenderness Neuro CN's II-XII intact bilaterally Sensorium / Orientation: alert Motor Exam: strength 5/5 throughout Psych mental status grossly normal Skin no wounds General Skin Exam: Negative for jaundice or pallor MDM MDM MDM Narrative Medical decision making narrative: Patient presenting flank pain, nausea, diaphoresis. Is resolved now. No history of kidney stone. Differential diagnosis currently includes colitis, diverticulitis, kidney stone, pyelonephritis. Patient well-appearing and pain- free. He declines analgesia. CBC to assess white blood cell count, hemoglobin, platelets, differential. BMP to assess renal function electrolytes. Specifically his significant other wanted to have a lipase checked because he has a history of pancreatic issues. He does not have any epigastric pain on examination. CBC and BMP within normal limits. Urinalysis shows occult blood. No evidence infection. Patient CT of the abdomen pelvis without contrast which shows a punctate stone which appears to be passed into the bladder. Patient counseled of this. Patient was given urology follow-up. Discharged home in stable condition. Impression: 1. Bladder calculi 2. Hematuria Lab Data Labs: Laboratory Results - last 24 hr 09/29/22 09/29/22 09/29/22 13:23 13:23 13:23 WBC 8.2 RBC 5.07 Hgb 15.0 Hct 45.4 MCV 89.5 MCH 29.6 MCHC 33.0 RDW Std Deviation 43.7 RDW Coeff of Magda 13.4 Plt Count 236 MPV 9.5 Immature Gran % (Auto) 0.200 Neut % (Auto) 54.6 Lymph % (Auto) 37.2 [place] % (Auto) 6.5 Eos % (Auto) 1.0 Baso % (Auto) 0.5 Absolute Neuts (auto) 4.5 Absolute Lymphs (auto) 3.05 Nucleated RBC % 0 Sodium 141 Potassium 4.4 Chloride 107 Carbon Dioxide 28.0 Anion Gap 6 BUN 20 H Creatinine 1.05 Estim Creat Clear Calc 81.43 Est GFR (MDRD) Af Amer 96 Est GFR (MDRD) Non-Af 79 BUN/Creatinine Ratio 19.0 Glucose 99 Calcium 9.7 Lipase Urine Color Yellow Urine Clarity Clear Urine pH 6.0 Ur Specific [place] 1.020 Urine Protein 15 H Urine Glucose (UA) Normal Urine Ketones 5 H Urine Occult Blood 150 H Urine Nitrite Negative Urine Bilirubin Negative Urine Urobilinogen Normal Ur Leukocyte Esterase Negative Urine RBC 10-25 SEEN Urine WBC 0 SEEN Ur Squamous Epith Cells 0 SEEN Urine Bacteria 0 SEEN Urine Mucus 0 SEEN 09/29/22 13:23 WBC RBC Hgb Hct MCV MCH MCHC RDW Std Deviation RDW Coeff of Magda Plt Count MPV Immature Gran % (Auto) Neut % (Auto) Lymph % (Auto) [place] % (Auto) Eos % (Auto) Baso % (Auto) Absolute Neuts (auto) Absolute Lymphs (auto) Nucleated RBC % Sodium Potassium Chloride Carbon Dioxide Anion Gap BUN Creatinine Estim Creat Clear Calc Est GFR (MDRD) Af Amer Est GFR (MDRD) Non-Af BUN/Creatinine Ratio Glucose Calcium Lipase 23 L Urine Color Urine Clarity Urine pH Ur Specific [place] Urine Protein Urine Glucose (UA) Urine Ketones Urine Occult Blood Urine Nitrite Urine Bilirubin Urine Urobilinogen Ur Leukocyte Esterase Urine RBC Urine WBC Ur Squamous Epith Cells Urine Bacteria Urine Mucus Radiography Diagnostic Testing: Clinical Impression(s) from Imaging Studies Abdomen/Pelvis CT 09/29/22 13:40 IMPRESSION: Punctate calculus seen at the base of the bladder on the left size just of a recently passed ureteral calculus. Tiny nonobstructive bilateral intrarenal calculi. Electronically Signed: Pierre Quiñones MD at 14:53 EST , Discharge Plan Triage Chief Complaint: Flank Pain ED Provider: Luis Ledesma Dx/Rx/DC Orders Prescriptions: No Action Tysabri 300 mg/15 mL solution 300 mg .Route Rx Instructions: Infuse every 6 weeks 300 mg Primary Care Provider: Abdoul Tabor Referrals: Abdoul Tabor MD [Primary Care Provider] -
[2022-09-29 13:43] LABS: Red Blood Cells-Urine 10-25 SEEN /hpf (0-5)
[2022-09-29 13:50] LABS: Anion Gap 6 (5-15); BUN 20 mg/dL (7-18); Calcium,Total 9.7 mg/dL (8.5-10.1); Chloride 107 mmol/L (98-107); Creatinine, Serum 1.05 mg/dL (0.70-1.30); EST Glomerular Filtration Rate 79 mL/min (>60); Est Glom Filt Rate - Afr Amer 96 mL/min (>60); Estimated Creatinine Clearance 81.43 ml/min; Glucose 99 mg/dL (74-106); Potassium 4.4 mmol/L (3.5-5.1); Sodium Level 141 mmol/L (136-145)
[2022-09-29 14:08] LABS: Lipase 23 U/L (73-393)
[2022-09-29 14:53] VITALS: RESP 18
[2022-09-29 15:16] VITALS: RESP 18
== END 2022-09-29 15:17 | disposition home or self-care (01) ==
PROVIDERS: Emergency Provider Student in an Organized Health Care Education/Training Program; PCP Family Medicine; Visit Provider Student in an Organized Health Care Education/Training Program
DX: N21.0 Calculus in bladder (principal); R11.0 Nausea
CPT/HCPCS: 74176; 80048; 81001; 83690; 85025; 99283; A4216

== ENCOUNTER → 2023-12-22 | Outpatient (CLI) | payer OTHER, SELFPAY ==
[2023-12-22 17:39] LABS: Hematocrit 43.8 % (40-54); Hemoglobin 14.6 g/dL (13.0-16.5); Mean Corp Hgb Conc 33.3 g/dL (32-36); Mean Corpuscular Hgb 29.5 pg (27.0-32.0); Mean Corpuscular Volume 88.5 fL (80-94); Mean Platelet Vol. 9.9 fl (6.2-12.0); Platelet Count 258 K/mm3 (150-450); RBC Distribution Width CV 12.7 % (11.6-14.6); RBC Distribution Width SD 41.1 fl (35.1-43.9); Red Blood Count 4.95 M/mm3 (4.6-6.2); White Blood Count 7.8 K/mm3 (4.4-11.0)
[2023-12-22 17:51] LABS: Erythrocyte Sedimentation Rate 4 mm/hr (0-20)
[2023-12-22 17:56] LABS: Hemoglobin A1c 5.5 % (3.8-5.6)
[2023-12-22 18:13] LABS: ALB/GLOB Ratio 1.1 RATIO (0.9-2.4); AST(SGOT) 24 U/L (15-37); Alanine Aminotransfer ALT/SGPT 33 U/L (16-61); Albumin, Serum 3.8 g/dL (3.2-5.0); Alkaline Phosphatase 62 U/L (45-117); Anion Gap 7 (5-15); BUN 23 mg/dL (7-18); BUN/Creat Ratio 21.7 RATIO (10-20); Calcium,Total 8.9 mg/dL (8.5-10.1); Chloride 108 mmol/L (98-107); Creatinine, Serum 1.06 mg/dL (0.70-1.30); EST Glomerular Filtration Rate 78 mL/min (>60); Est Glom Filt Rate - Afr Amer 95 mL/min (>60); Globulin 3.5 g/dL (2.2-4.2); Glucose 103 mg/dL (74-106); Iron 90 ug/dL (65-175); Potassium 3.7 mmol/L (3.5-5.1); Protein, Total 7.3 g/dL (6.4-8.2); Sodium Level 138 mmol/L (136-145); Thyroid Stim Hormone (TSH) 1.21 uIU/mL (0.358-3.74)
[2023-12-22 18:16] LABS: Vitamin B12 309 pg/mL (211-911); Vitamin D,25 Hydroxy 28.2 ng/mL
[2023-12-26 18:17] LABS: EBV Acute VCA IgM < 36.0 U/mL (0.0-35.9); EBV Nuclear Antigen IgG > 600.0 U/mL (0.0-17.9); EBV-VCA IgG > 600.0 U/mL (0.0-17.9)
== END | disposition home or self-care (01) ==
PROVIDERS: PCP Family Medicine; Referring Provider Family Medicine; Visit Provider Family Medicine
DX: R73.9 Hyperglycemia, unspecified (principal); R53.83 Other fatigue
CPT/HCPCS: 36415; 80053; 82306; 82607; 83036; 83540; 84403; 84443; 85027; 85652; 86664; 86665